=== PATIENT | male | born 1955 | race Caucasian/White ===

== ENCOUNTER → 2025-01-24 | Outpatient (CLI) | payer MEDICARE ==
[2025-01-24 15:06] LABS: African American GFR (CKD) 66 (>60 ml/min/1.73 sqM); Blood Urea Nitrogen 25 mg/dL (9-20); Non-African American GFR(CKD) 57 (>60 ml/min/1.73 sqM)
--- NOTE | 2025-01-24 15:58 | CT ---
EXAMINATION TYPE: CT chest w con DATE OF EXAM ORDERED: 01/24/2025 CLINICAL INDICATION: Male, 69 years old with history of R91.1 SOLITARY PULMONARY NODULE, history of t obacco use, Lung cancer screening CT DLP: 601.[address] CTDI: mGy Automated exposure control for dose reduction was used. Comparison: None FINDINGS: There is a 6 mm nodule in the left lower lobe. There is no airspace consolidation or abnormal interstitial density. There is no mediastinal, hilar or axillary adenopathy. There is no pleural effusion, pleural thickening or pneumothorax. No focal osseous lesions are seen. Limited scans the upper abdomen reveals no gross abnormality IMPRESSION: 1. 6 mm nodule left lower lobe. Likely benign but follow-up CT thorax in 6 months is recommended to c onfirm stability. 2. No acute cardiopulmonary disease. [facility], Workstation: LUZ MARINA, 01/24/2025 3:56 PM
== END | disposition home or self-care (01) ==
LOC: RADCTMAIN 14:34
PROVIDERS: ATTEND Family Medicine
DX: R91.1 Solitary pulmonary nodule (principal)
CPT/HCPCS: 82565; 84520; 71260; 36415; Q9967